=== PATIENT | male | born 1995 | race Two or more races ===

== ENCOUNTER 2020-04-01 18:35 | Emergency (ER) | payer OTHER ==
[~2020-04-01] VITALS: Ht 175.3 cm; Wt 91.6 kg
[2020-04-01 18:48] VITALS: BP 151/79
--- NOTE | 2020-04-01 21:56 | NUR ---
PIE FILLER: PT WALKED BACK FROM LOBBY TO ROOM AT THIS TIME. STEADY UPON AMBULATION. NO ACUTE DISTRESS NOTED AT THIS TIME.
--- NOTE | 2020-04-01 22:14 | NUR ---
pt came into ed today for finger abcess that was drained at urgent care previously but they told him to follow up here. pt states they "think it became infected at some point." cms intact. pt right hand, on ventral crease, slightly swollen. waiting for rad results. wctm.
--- NOTE | 2020-04-01 22:49 | NUR ---
pt dc instructions given, with prescription. vu and ambulatory. finger intact, no bleeding and small lac at site. closed.
== END 2020-04-01 22:51 | disposition home or self-care (01) ==
LOC: ED 22:30
DX: L02.512 Cutaneous abscess of left hand (principal); M79.89 Other specified soft tissue disorders; M79.644 Pain in right finger(s)
CPT/HCPCS: 99283